=== PATIENT | male | born 1970 | race Caucasian/White ===

== ENCOUNTER 2021-05-10 00:24 | Inpatient (IN) ==
[2021-05-10 00:58] LABS: Basophils # 0.1 K/mcL (0.0-0.2); Basophils % 0.6 %; Eosinophils # 0.8 K/mcL (0.0-0.6); Eosinophils % 5.1 %; Hematocrit 44.8 % (37.5-50.1); Hemoglobin 15.4 g/dL (12.9-16.9); Lymphocytes # 2.7 K/mcL (0.6-4.6); Lymphocytes % 17.7 %; Mean Corpuscular HGB Conc 34.4 g/dL (31.6-35.5); Mean Corpuscular Hemoglobin 31.4 pg (28.0-33.3); Mean Corpuscular Volume 91.4 fL (83.0-100.0); Mean Platelet Volume 10.1 fL (9.4-12.4); Monocytes # 1.1 K/mcL (0.0-1.3); Monocytes % 7.3 %; Neutrophils # 10.5 K/mcL (1.6-8.9); Platelet Count 294 K/mcL (140-400); Red Cell Distribution Width 13.2 % (11.5-14.5); Segmented Neutrophils % 68.3 %; White Blood Count 15.4 K/mcL (4.3-11.1)
[2021-05-10 01:19] LABS: Alanine Aminotransferase 26 Units/L (7-52); Albumin 3.7 g/dL (3.5-5.7); Alkaline Phosphatase 53 Units/L (34-104); Amylase 43 Units/L (29-103); Aspartate Amino Transferase 22 Units/L (13-39); BUN/Creatinine Ratio 12 (6-26); Bilirubin,Direct 0.3 mg/dL (0.0-0.2); Bilirubin,Indirect 0.4 mg/dL (0.0-1.0); Bilirubin,Total 0.7 mg/dL (0.3-1.0); Blood Urea Nitrogen 10 mg/dL (6-20); Calcium 9.3 mg/dL (8.6-10.3); Carbon Dioxide 28 mEq/L (23-29); Chloride 100 mEq/L (98-107); Globulin 3.6 g/dL (2.4-3.5); Glucose 118 mg/dL (70-105); Lipase 35 Units/L (11-82); Osmolality,Calculated 286 (280-300); Potassium 3.4 mEq/L (3.5-5.1); Sodium 138 mEq/L (136-145); Total Protein 7.3 g/dL (6.4-8.9); eGFR For African Americans > 60 (> 60); eGFR For Non-African Americans > 60 (> 60)
[2021-05-10] MEDS ORDERED: MetroNIDAZOLE 500 MG/100 ML 500 MG/100 ML BAG IVPB ONE (02:36)
[2021-05-10] MEDS ORDERED: Ondansetron 4 MG/2 ML VIAL IVP ONE (02:36)
[2021-05-10] MEDS ORDERED: 0.9 % Sodium Chloride 1,000 ML IVC ONE (02:36)
[2021-05-10] MEDS ORDERED: cefTRIAXone 1,000 MG in 0.9 % Sodium Chloride Mini Bag 100 ML IVPB ONE (02:36)
[2021-05-10] MEDS ORDERED: *HR* FentaNYL (PF) 100 MCG/2 ML VIAL IVP ONE (02:41)
[2021-05-10] MEDS ORDERED: *HR* Promethazine 25 MG/ML VIAL IM PRN ×2 (03:37→08:15)
[2021-05-10] MEDS ORDERED: Naloxone 0.4 MG/ML INJ IVP PRN ×2 (03:37→08:15)
[2021-05-10] MEDS ORDERED: Saliva Stimulant 44.3ml BOTTLE PO PRN ×2 (03:43→08:15)
[2021-05-10] MEDS ORDERED: Acetaminophen 325 MG TABLET PO PRN ×2 (03:43→08:15)
[2021-05-10] MEDS ORDERED: D5% in Water 1,000 ML IVC PRN ×2 (03:44→08:15)
[2021-05-10] MEDS ORDERED: Potassium Chloride 40 MEQ, Lidocaine 1% 2 ML in 0.9 % Sodium Chloride 500 ML IVPB ONE (03:44)
[2021-05-10] MEDS ORDERED: Dextrose Gel 15 GM/37.5 ML TUBE PO PRN ×4 (03:44→08:15)
[2021-05-10] MEDS ORDERED: *HR* Dextrose 50 % in Water (Syg) 50 ML SYRINGE IVP PRN ×2 (03:44→08:15)
[2021-05-10] MEDS ORDERED: Morphine Sulfate 2 MG/ML SYRINGE IVP SCH (03:45)
[2021-05-10] MEDS ORDERED: Ipratropium/Albuterol Neb 3 ML IH SCH (04:00)
[2021-05-10 04:23] LABS: Influenza A PCR Negative (Negative); Influenza B PCR Negative (Negative); Resp. Syncytial Virus PCR Negative (Negative)
[2021-05-10 04:25] LABS: SARS-CoV-2 by PCR (In House) Negative (Negative)
[2021-05-10] MEDS ORDERED: *HR* HYDROmorphone PF 0.5 MG/0.5 ML SYRINGE IVP PRN ×2 (04:50→08:15)
[2021-05-10] MEDS ORDERED: 0.9 % Sodium Chloride 1,000 ML IVC SCH (05:00)
[2021-05-10] MEDS ORDERED: Acetaminophen IV 1,000 MG/100 ML BAG IVPB ONE ×4 (05:15→08:15)
[2021-05-10] MEDS ORDERED: *HR* Propofol 200 MG/20 ML VIAL IVP ONE (05:38)
[2021-05-10] MEDS ORDERED: *HR* Midazolam HCl 2 MG/2 ML VIAL ONE (05:38)
[2021-05-10] MEDS ORDERED: *HR* FentaNYL (PF) 100 MCG/2 ML VIAL ONE (05:38)
[2021-05-10 05:39] LABS: Basophils # 0.1 K/mcL (0.0-0.2); Basophils % 0.8 %; Eosinophils # 0.7 K/mcL (0.0-0.6); Eosinophils % 5.9 %; Hematocrit 41.8 % (37.5-50.1); Hemoglobin 14.2 g/dL (12.9-16.9); Immature Granulocytes % 0.9 % (0-4); Lymphocytes # 2.6 K/mcL (0.6-4.6); Lymphocytes % 20.4 %; Mean Corpuscular Hemoglobin 31.7 pg (28.0-33.3); Mean Corpuscular Volume 93.3 fL (83.0-100.0); Mean Platelet Volume 9.9 fL (9.4-12.4); Monocytes % 8.1 %; Platelet Count 236 K/mcL (140-400); Red Blood Count 4.48 M/mcL (4.19-5.50); Red Cell Distribution Width 13.4 % (11.5-14.5); Segmented Neutrophils % 63.9 %; White Blood Count 12.5 K/mcL (4.3-11.1)
[2021-05-10] MEDS ORDERED: Lidocaine HCL 4 ML Topical Solution (Laryng-O-Jet Kit Sterile Pak) TP ONE (05:40)
[2021-05-10] MEDS ORDERED: Ondansetron 4 MG/2 ML VIAL ONE (05:42)
[2021-05-10] MEDS ORDERED: Lidocaine -MPF 2% 5 ML VIAL ONE (05:42)
[2021-05-10] MEDS ORDERED: *HR* Succinylcholine 200 MG/10 ML VIAL IVP ONE (05:42)
[2021-05-10] MEDS ORDERED: *HR* Rocuronium Bromide 50 MG/5 ML VIAL ONE (05:42)
[2021-05-10] MEDS ORDERED: Sugammadex Sodium 200 MG/2 ML VIAL IV ONE (05:42)
[2021-05-10] MEDS ORDERED: *HR* Magnesium Sulfate 1 GM/2 ML VIAL ONE (05:43)
[2021-05-10 05:46] LABS: INR 1.1; Prothrombin Time 11.7 Seconds (9.4-12.1)
[2021-05-10 06:08] LABS: Alanine Aminotransferase 22 Units/L (7-52); Albumin 3.5 g/dL (3.5-5.7); Albumin/Globulin Ratio 1.1 (1.1-2.2); Alkaline Phosphatase 49 Units/L (34-104); Aspartate Amino Transferase 20 Units/L (13-39); BUN/Creatinine Ratio 13 (6-26); Bilirubin,Total 0.6 mg/dL (0.3-1.0); Blood Urea Nitrogen 10 mg/dL (6-20); Calcium 8.7 mg/dL (8.6-10.3); Carbon Dioxide 23 mEq/L (23-29); Chloride 106 mEq/L (98-107); Globulin 3.1 g/dL (2.4-3.5); Glucose 101 mg/dL (70-105); Magnesium 1.9 mg/dL (1.6-2.6); Osmolality,Calculated 283 (280-300); Phosphorous 3.7 mg/dL (2.7-4.5); Potassium 3.8 mEq/L (3.5-5.1); Sodium 137 mEq/L (136-145); Total Protein 6.6 g/dL (6.4-8.9); eGFR For African Americans > 60 (> 60); eGFR For Non-African Americans > 60 (> 60)
[2021-05-10] MEDS ORDERED: Nicotine 2 MG GUM BC PRN ×2 (06:38→08:15)
[2021-05-10] MEDS ORDERED: *HR* HYDROMORPHONE 2 MG/ML VIAL ONE (07:12)
[2021-05-10] MEDS: Budesonide/Formoterol 160/4.5 1 PUFF INH IH SCH ×2 (08:34→21:21)
[2021-05-10] MEDS: Ipratropium/Albuterol Neb 3 ML IH SCH ×3 (08:35→21:21)
[2021-05-10] MEDS: 0.9 % Sodium Chloride 1,000 ML IVC SCH ×2 (08:55→19:31)
[2021-05-10] MEDS ORDERED: Nicotine 14 MG PATCH.TD24 TD SCH (09:00)
[2021-05-10] MEDS ORDERED: Chlorhexidine Rinse 15 ML MOUTHWASH MM SCH (09:00)
[2021-05-10] MEDS: Chlorhexidine Rinse 15 ML MOUTHWASH MM SCH ×2 (09:04→21:42)
[2021-05-10] MEDS: Cefepime HCl 2,000 MG in 0.9 % Sodium Chloride Mini Bag 100 ML IVPB SCH ×2 (09:04→21:28)
[2021-05-10] MEDS: Nicotine 14 MG PATCH.TD24 TD SCH (09:04)
[2021-05-10] MEDS ORDERED: MetroNIDAZOLE 500 MG/100 ML 500 MG/100 ML BAG IVPB SCH (10:00)
[2021-05-10] MEDS ORDERED: Budesonide/Formoterol 160/4.5 1 PUFF INH IH SCH (10:00)
[2021-05-10] MEDS: MetroNIDAZOLE 500 MG/100 ML 500 MG/100 ML BAG IVPB SCH ×2 (11:47→17:22)
[2021-05-10] MEDS: Morphine Sulfate 2 MG/ML SYRINGE IVP PRN ×3 (15:43→23:46)
[2021-05-11 01:56] LABS: Basophils % 0.2 %; Hematocrit 43.9 % (37.5-50.1); Hemoglobin 14.8 g/dL (12.9-16.9); Immature Granulocytes % 0.8 % (0-4); Lymphocytes % 5.9 %; Mean Corpuscular HGB Conc 33.7 g/dL (31.6-35.5); Mean Corpuscular Hemoglobin 31.8 pg (28.0-33.3); Mean Corpuscular Volume 94.2 fL (83.0-100.0); Mean Platelet Volume 9.8 fL (9.4-12.4); Monocytes % 5.9 %; Neutrophils # 14.4 K/mcL (1.6-8.9); Platelet Count 289 K/mcL (140-400); Red Blood Count 4.66 M/mcL (4.19-5.50); Red Cell Distribution Width 13.4 % (11.5-14.5); Segmented Neutrophils % 87.2 %; White Blood Count 16.5 K/mcL (4.3-11.1)
[2021-05-11 02:18] LABS: Alanine Aminotransferase 18 Units/L (7-52); Albumin 3.4 g/dL (3.5-5.7); Alkaline Phosphatase 52 Units/L (34-104); Aspartate Amino Transferase 18 Units/L (13-39); BUN/Creatinine Ratio 12 (6-26); Bilirubin,Total 0.9 mg/dL (0.3-1.0); Blood Urea Nitrogen 9 mg/dL (6-20); Calcium 8.6 mg/dL (8.6-10.3); Carbon Dioxide 24 mEq/L (23-29); Chloride 105 mEq/L (98-107); Globulin 3.3 g/dL (2.4-3.5); Glucose 118 mg/dL (70-105); Osmolality,Calculated 290 (280-300); Potassium 4.5 mEq/L (3.5-5.1); Sodium 140 mEq/L (136-145); Total Protein 6.7 g/dL (6.4-8.9); eGFR For African Americans > 60 (> 60); eGFR For Non-African Americans > 60 (> 60)
[2021-05-11] MEDS: MetroNIDAZOLE 500 MG/100 ML 500 MG/100 ML BAG IVPB SCH ×3 (02:42→21:31)
[2021-05-11] MEDS: Morphine Sulfate 2 MG/ML SYRINGE IVP PRN ×5 (04:08→19:00)
[2021-05-11] MEDS: Ipratropium/Albuterol Neb 3 ML IH SCH ×4 (04:08→20:32)
[2021-05-11] MEDS: 0.9 % Sodium Chloride 1,000 ML IVC SCH ×2 (05:42→16:44)
[2021-05-11] MEDS: Cefepime HCl 2,000 MG in 0.9 % Sodium Chloride Mini Bag 100 ML IVPB SCH ×2 (08:25→23:44)
[2021-05-11] MEDS: Nicotine 14 MG PATCH.TD24 TD SCH (08:28)
[2021-05-11] MEDS: Chlorhexidine Rinse 15 ML MOUTHWASH MM SCH ×3 (08:28→22:13)
[2021-05-11] MEDS ORDERED: cefTRIAXone 1,000 MG in Water for inj. (sterile) 10 ML IVP SCH (09:00)
[2021-05-11] MEDS: Budesonide/Formoterol 160/4.5 1 PUFF INH IH SCH ×2 (09:52→20:32)
[2021-05-11] MEDS: Ketorolac 30 MG/ML VIAL IVP SCH ×2 (11:03→19:00)
[2021-05-11] MEDS: Acetaminophen IV 1,000 MG/100 ML BAG IVPB SCH ×2 (13:24→19:01)
[2021-05-11] MEDS: Gabapentin 300 MG CAPSULE PO SCH ×3 (14:54→22:13)
[2021-05-12] MEDS: Morphine Sulfate 2 MG/ML SYRINGE IVP PRN ×6 (00:25→19:24)
[2021-05-12] MEDS: Ketorolac 30 MG/ML VIAL IVP SCH ×4 (00:25→18:07)
[2021-05-12] MEDS: Acetaminophen IV 1,000 MG/100 ML BAG IVPB SCH ×4 (00:25→18:06)
[2021-05-12] MEDS: MetroNIDAZOLE 500 MG/100 ML 500 MG/100 ML BAG IVPB SCH ×3 (02:19→17:16)
[2021-05-12 02:35] LABS: Basophils # 0.1 K/mcL (0.0-0.2); Basophils % 0.5 %; Eosinophils # 0.4 K/mcL (0.0-0.6); Eosinophils % 3.4 %; Hematocrit 39.5 % (37.5-50.1); Immature Granulocytes % 0.6 % (0-4); Lymphocytes # 1.5 K/mcL (0.6-4.6); Mean Corpuscular HGB Conc 32.9 g/dL (31.6-35.5); Mean Corpuscular Volume 94.3 fL (83.0-100.0); Mean Platelet Volume 10.3 fL (9.4-12.4); Monocytes # 0.8 K/mcL (0.0-1.3); Monocytes % 7.6 %; Platelet Count 225 K/mcL (140-400); Red Blood Count 4.19 M/mcL (4.19-5.50); Red Cell Distribution Width 13.3 % (11.5-14.5); Segmented Neutrophils % 73.9 %; White Blood Count 10.8 K/mcL (4.3-11.1)
[2021-05-12 02:47] LABS: Alanine Aminotransferase 16 Units/L (7-52); Albumin 3.1 g/dL (3.5-5.7); Alkaline Phosphatase 39 Units/L (34-104); Aspartate Amino Transferase 16 Units/L (13-39); BUN/Creatinine Ratio 20 (6-26); Bilirubin,Total 0.8 mg/dL (0.3-1.0); Blood Urea Nitrogen 14 mg/dL (6-20); Calcium 8.6 mg/dL (8.6-10.3); Carbon Dioxide 27 mEq/L (23-29); Chloride 104 mEq/L (98-107); Globulin 3.2 g/dL (2.4-3.5); Glucose 96 mg/dL (70-105); Osmolality,Calculated 286 (280-300); Potassium 3.9 mEq/L (3.5-5.1); Sodium 138 mEq/L (136-145); Total Protein 6.3 g/dL (6.4-8.9); eGFR For African Americans > 60 (> 60); eGFR For Non-African Americans > 60 (> 60)
[2021-05-12] MEDS: Ipratropium/Albuterol Neb 3 ML IH SCH ×4 (04:15→21:06)
[2021-05-12] MEDS: *HR* Heparin 5,000 UNIT/ML VIAL SQ SCH ×2 (05:02→17:17)
[2021-05-12] MEDS: 0.9 % Sodium Chloride 1,000 ML IVC SCH ×3 (05:04→19:41)
[2021-05-12] MEDS ORDERED: *HR* Enoxaparin 40 MG/0.4 ML SYRINGE SQ SCH (06:00)
[2021-05-12] MEDS: Budesonide/Formoterol 160/4.5 1 PUFF INH IH SCH ×2 (07:51→21:06)
[2021-05-12] MEDS: Chlorhexidine Rinse 15 ML MOUTHWASH MM SCH ×2 (08:43→21:25)
[2021-05-12] MEDS: Cefepime HCl 2,000 MG in 0.9 % Sodium Chloride Mini Bag 100 ML IVPB SCH ×2 (08:43→21:26)
[2021-05-12] MEDS: Gabapentin 300 MG CAPSULE PO SCH ×3 (08:44→21:25)
[2021-05-12] MEDS: Nicotine 14 MG PATCH.TD24 TD SCH (08:44)
[2021-05-13] MEDS: Ketorolac 30 MG/ML VIAL IVP SCH ×2 (00:09→05:13)
[2021-05-13] MEDS: Acetaminophen IV 1,000 MG/100 ML BAG IVPB SCH ×2 (00:09→05:12)
[2021-05-13] MEDS: Morphine Sulfate 2 MG/ML SYRINGE IVP PRN ×2 (00:10→08:40)
[2021-05-13] MEDS: MetroNIDAZOLE 500 MG/100 ML 500 MG/100 ML BAG IVPB SCH (02:17)
[2021-05-13 02:25] LABS: Basophils # 0.1 K/mcL (0.0-0.2); Basophils % 0.6 %; Eosinophils # 0.8 K/mcL (0.0-0.6); Eosinophils % 8.4 %; Hematocrit 40.5 % (37.5-50.1); Hemoglobin 13.1 g/dL (12.9-16.9); Immature Granulocytes % 1.1 % (0-4); Lymphocytes # 1.4 K/mcL (0.6-4.6); Lymphocytes % 15.6 %; Mean Corpuscular HGB Conc 32.3 g/dL (31.6-35.5); Mean Corpuscular Hemoglobin 30.5 pg (28.0-33.3); Mean Corpuscular Volume 94.4 fL (83.0-100.0); Mean Platelet Volume 9.9 fL (9.4-12.4); Monocytes # 0.7 K/mcL (0.0-1.3); Monocytes % 7.6 %; Neutrophils # 5.9 K/mcL (1.6-8.9); Platelet Count 243 K/mcL (140-400); Red Blood Count 4.29 M/mcL (4.19-5.50); Red Cell Distribution Width 13.2 % (11.5-14.5); Segmented Neutrophils % 66.7 %; White Blood Count 8.9 K/mcL (4.3-11.1)
[2021-05-13 02:40] LABS: BUN/Creatinine Ratio 17 (6-26); Blood Urea Nitrogen 12 mg/dL (6-20); Calcium 8.5 mg/dL (8.6-10.3); Carbon Dioxide 28 mEq/L (23-29); Chloride 107 mEq/L (98-107); Glucose 120 mg/dL (70-105); Osmolality,Calculated 293 (280-300); Potassium 3.5 mEq/L (3.5-5.1); Sodium 141 mEq/L (136-145); eGFR For African Americans > 60 (> 60); eGFR For Non-African Americans > 60 (> 60)
[2021-05-13] MEDS: Ipratropium/Albuterol Neb 3 ML IH SCH ×4 (04:23→21:04)
[2021-05-13] MEDS: *HR* Heparin 5,000 UNIT/ML VIAL SQ SCH ×2 (05:13→18:04)
[2021-05-13] MEDS ORDERED: 0.9 % Sodium Chloride 1,000 ML IVC SCH (08:00)
[2021-05-13] MEDS: Chlorhexidine Rinse 15 ML MOUTHWASH MM SCH ×2 (08:45→20:46)
[2021-05-13] MEDS: Gabapentin 300 MG CAPSULE PO SCH (08:46)
[2021-05-13] MEDS: Nicotine 14 MG PATCH.TD24 TD SCH (08:47)
[2021-05-13] MEDS: metroNIDAZOLE 500 MG TABLET PO SCH ×3 (08:56→20:46)
[2021-05-13] MEDS: Budesonide/Formoterol 160/4.5 1 PUFF INH IH SCH ×2 (10:28→21:04)
[2021-05-13] MEDS ORDERED: *HR* LORazepam 1 MG TABLET PO ONE (10:30)
[2021-05-14 02:46] LABS: Basophils # 0.1 K/mcL (0.0-0.2); Basophils % 0.6 %; Eosinophils % 9.7 %; Hematocrit 40.4 % (37.5-50.1); Hemoglobin 13.9 g/dL (12.9-16.9); Immature Granulocytes % 1.7 % (0-4); Lymphocytes # 1.6 K/mcL (0.6-4.6); Lymphocytes % 14.7 %; Mean Corpuscular HGB Conc 34.4 g/dL (31.6-35.5); Mean Corpuscular Hemoglobin 31.4 pg (28.0-33.3); Mean Corpuscular Volume 91.4 fL (83.0-100.0); Mean Platelet Volume 9.6 fL (9.4-12.4); Monocytes # 0.7 K/mcL (0.0-1.3); Monocytes % 6.6 %; Neutrophils # 7.2 K/mcL (1.6-8.9); Platelet Count 276 K/mcL (140-400); Red Blood Count 4.42 M/mcL (4.19-5.50); Red Cell Distribution Width 12.8 % (11.5-14.5); Segmented Neutrophils % 66.7 %; White Blood Count 10.7 K/mcL (4.3-11.1)
[2021-05-14 03:03] LABS: BUN/Creatinine Ratio 13 (6-26); Blood Urea Nitrogen 9 mg/dL (6-20); Calcium 8.2 mg/dL (8.6-10.3); Carbon Dioxide 26 mEq/L (23-29); Chloride 104 mEq/L (98-107); Glucose 102 mg/dL (70-105); Osmolality,Calculated 281 (280-300); Potassium 3.9 mEq/L (3.5-5.1); Sodium 136 mEq/L (136-145); eGFR For African Americans > 60 (> 60); eGFR For Non-African Americans > 60 (> 60)
[2021-05-14] MEDS: Ipratropium/Albuterol Neb 3 ML IH SCH ×3 (03:59→16:05)
[2021-05-14] MEDS: *HR* Heparin 5,000 UNIT/ML VIAL SQ SCH (05:08)
[2021-05-14] MEDS: metroNIDAZOLE 500 MG TABLET PO SCH (09:58)
[2021-05-14] MEDS: Chlorhexidine Rinse 15 ML MOUTHWASH MM SCH (09:58)
[2021-05-14] MEDS: Nicotine 14 MG PATCH.TD24 TD SCH (09:58)
[2021-05-14] MEDS: Budesonide/Formoterol 160/4.5 1 PUFF INH IH SCH (10:21)
[2021-05-14 15:49] VITALS: BP 138/92; PULSE 66; TEMP 98; O2SAT 93
== END 2021-05-14 17:30 | disposition home or self-care (01) | DRG 231 ==
LOC: EMEROOARM 00:24 → 3ANU 00:24 → SUATTDRO 03:51 → 3ANU 04:10 → SUATTDRO 11:45
PROVIDERS: ADMIT Internal Medicine; ATTEND Student in an Organized Health Care Education/Training Program

== ENCOUNTER 2021-09-04 10:25 | Inpatient (IN) ==
[~2021-09-04 10:25] MED LIST: Famotidine 20 MG/2 ML VIAL IVP ONE; Scopolamine Patch 1.5 MG PATCH.TD72 TD ONE
[2021-09-04] MEDS ORDERED: Ringers Solution, Lactated 1,000 ML IVC SCH (11:00)
[2021-09-04] MEDS ORDERED: Acetaminophen IV 1,000 MG/100 ML BAG IVPB ONE (12:26)
[2021-09-04] MEDS ORDERED: Ipratropium Neb 0.5 MG NEBULIZER IH PRN (12:39)
[2021-09-04] MEDS ORDERED: *HR* FentaNYL (PF) 100 MCG/2 ML VIAL IVP PRN (12:39)
[2021-09-04] MEDS ORDERED: Albuterol 2.5 MG/3 ML NEBULIZER IH PRN (12:39)
[2021-09-04] MEDS ORDERED: Naloxone 0.4 MG/ML INJ IVP PRN ×2 (12:39→20:56)
[2021-09-04] MEDS ORDERED: Ondansetron 4 MG/2 ML VIAL IVP PRN (12:39)
[2021-09-04] MEDS ORDERED: cefOXitin 2,000 MG in 0.9 % Sodium Chloride 20 ML IVP ONE (13:29)
[2021-09-04] MEDS ORDERED: *HR* Propofol 200 MG/20 ML VIAL IVP ONE (13:58)
[2021-09-04] MEDS ORDERED: Ondansetron 4 MG/2 ML VIAL ONE (14:00)
[2021-09-04] MEDS ORDERED: *HR* Rocuronium Bromide 50 MG/5 ML VIAL ONE ×2 (14:00→15:49)
[2021-09-04] MEDS ORDERED: Lidocaine HCL 4 ML Topical Solution (Laryng-O-Jet Kit Sterile Pak) TP ONE (14:00)
[2021-09-04] MEDS ORDERED: Lidocaine -MPF 2% 5 ML VIAL ONE (14:00)
[2021-09-04] MEDS ORDERED: *HR* FentaNYL (PF) 100 MCG/2 ML VIAL ONE ×3 (14:20→16:22)
[2021-09-04] MEDS ORDERED: *HR* Midazolam HCl 2 MG/2 ML VIAL ONE (14:21)
[2021-09-04] MEDS ORDERED: CefOXitin 2,000 MG VIAL ONE (14:48)
[2021-09-04] MEDS ORDERED: *HR* Magnesium Sulfate 1 GM/2 ML VIAL ONE (15:32)
[2021-09-04] MEDS ORDERED: *HR* Labetalol 20 MG/4 ML SYRINGE IVP ONE (17:03)
[2021-09-04] MEDS ORDERED: *HR* HYDROMORPHONE 2 MG/ML VIAL ONE (17:15)
[2021-09-04] MEDS ORDERED: Ketamine HCL *QUVA* 50mg (1mL) SYRINGE ONE (17:39)
[2021-09-04] MEDS ORDERED: Ondansetron ODT 4 MG TAB.RAPDIS SL PRN (20:56)
[2021-09-04] MEDS ORDERED: Ipratropium/Albuterol Neb 3 ML IH PRN (20:56)
[2021-09-04] MEDS: *HR* OxyCODONE Immed Rel 5 MG TABLET PO PRN (22:09)
[2021-09-04] MEDS: 0.9 % Sodium Chloride 1,000 ML IVC SCH (22:10)
[2021-09-04] MEDS: Ibuprofen 600 MG TABLET PO SCH (22:11)
[2021-09-05] MEDS: *HR* HYDROmorphone (PF) 1 MG/ML SYRINGE IVP PRN ×4 (00:44→23:11)
[2021-09-05 06:33] LABS: Basophils # 0.1 K/mcL (0.0-0.2); Basophils % 0.3 %; Eosinophils % 0.1 %; Hematocrit 41.9 % (37.5-50.1); Hemoglobin 13.8 g/dL (12.9-16.9); Immature Granulocytes % 0.6 % (0-4); Lymphocytes # 1.6 K/mcL (0.6-4.6); Lymphocytes % 10.2 %; Mean Corpuscular HGB Conc 32.9 g/dL (31.6-35.5); Mean Corpuscular Hemoglobin 30.7 pg (28.0-33.3); Mean Corpuscular Volume 93.1 fL (83.0-100.0); Mean Platelet Volume 9.5 fL (9.4-12.4); Monocytes # 0.9 K/mcL (0.0-1.3); Monocytes % 5.5 %; Neutrophils # 13.2 K/mcL (1.6-8.9); Platelet Count 295 K/mcL (140-400); Red Cell Distribution Width 13.5 % (11.5-14.5); Segmented Neutrophils % 83.3 %; White Blood Count 15.9 K/mcL (4.3-11.1)
[2021-09-05] MEDS: *HR* OxyCODONE Immed Rel 5 MG TABLET PO PRN ×3 (06:40→21:03)
[2021-09-05 06:54] LABS: BUN/Creatinine Ratio 10 (6-26); Blood Urea Nitrogen 9 mg/dL (6-20); Calcium 8.1 mg/dL (8.6-10.3); Carbon Dioxide 27 mEq/L (23-29); Chloride 104 mEq/L (98-107); Glucose 102 mg/dL (70-105); Osmolality,Calculated 283 (280-300); Phosphorous 3.8 mg/dL (2.7-4.5); Potassium 4.5 mEq/L (3.5-5.1); Sodium 137 mEq/L (136-145); eGFR For African Americans > 60 (> 60); eGFR For Non-African Americans > 60 (> 60)
[2021-09-05] MEDS: Ibuprofen 600 MG TABLET PO SCH ×2 (08:10→21:03)
[2021-09-05] MEDS: 0.9 % Sodium Chloride 1,000 ML IVC SCH ×2 (08:29→18:36)
[2021-09-05] MEDS ORDERED: *HR* Dextrose 50 % in Water (Syg) 50 ML SYRINGE IVP ONE (13:45)
[2021-09-05] MEDS: D5% in 0.45% NACL w KCl 20 MEQ/1,000 ML MLS IVC SCH (21:02)
[2021-09-06] MEDS: *HR* OxyCODONE Immed Rel 5 MG TABLET PO PRN ×3 (03:03→21:38)
[2021-09-06] MEDS: *HR* HYDROmorphone (PF) 1 MG/ML SYRINGE IVP PRN ×3 (05:58→23:13)
[2021-09-06] MEDS: *HR* Enoxaparin 40 MG/0.4 ML SYRINGE SQ SCH (06:00)
[2021-09-06 06:24] LABS: Basophils % 0.3 %; Eosinophils # 0.1 K/mcL (0.0-0.6); Hematocrit 39.2 % (37.5-50.1); Hemoglobin 13.4 g/dL (12.9-16.9); Immature Granulocytes % 0.4 % (0-4); Lymphocytes # 2.3 K/mcL (0.6-4.6); Lymphocytes % 16.8 %; Mean Corpuscular HGB Conc 34.2 g/dL (31.6-35.5); Mean Corpuscular Hemoglobin 31.2 pg (28.0-33.3); Mean Corpuscular Volume 91.4 fL (83.0-100.0); Mean Platelet Volume 9.8 fL (9.4-12.4); Monocytes % 7.3 %; Neutrophils # 10.1 K/mcL (1.6-8.9); Platelet Count 258 K/mcL (140-400); Red Blood Count 4.29 M/mcL (4.19-5.50); Red Cell Distribution Width 13.6 % (11.5-14.5); Segmented Neutrophils % 74.2 %; White Blood Count 13.6 K/mcL (4.3-11.1)
[2021-09-06 07:00] LABS: BUN/Creatinine Ratio 7 (6-26); Blood Urea Nitrogen 6 mg/dL (6-20); Calcium 8.5 mg/dL (8.6-10.3); Carbon Dioxide 27 mEq/L (23-29); Chloride 102 mEq/L (98-107); Glucose 98 mg/dL (70-105); Osmolality,Calculated 282 (280-300); Potassium 3.6 mEq/L (3.5-5.1); Sodium 137 mEq/L (136-145); eGFR For African Americans > 60 (> 60); eGFR For Non-African Americans > 60 (> 60)
[2021-09-06] MEDS ORDERED: Acetaminophen IV 1,000 MG/100 ML BAG IVPB PRN (09:21)
[2021-09-06] MEDS: Ketorolac 30 MG/ML VIAL IVP PRN ×2 (10:43→19:51)
[2021-09-06] MEDS: D5% in 0.45% NACL w KCl 20 MEQ/1,000 ML MLS IVC SCH (10:44)
[2021-09-07] MEDS: D5% in 0.45% NACL w KCl 20 MEQ/1,000 ML MLS IVC SCH (02:14)
[2021-09-07] MEDS: Ketorolac 30 MG/ML VIAL IVP PRN (04:04)
[2021-09-07 04:10] VITALS: O2SAT 94
[2021-09-07 05:30] LABS: Basophils % 0.3 %; Eosinophils # 0.4 K/mcL (0.0-0.6); Eosinophils % 3.9 %; Hematocrit 37.5 % (37.5-50.1); Immature Granulocytes % 0.5 % (0-4); Lymphocytes # 1.9 K/mcL (0.6-4.6); Lymphocytes % 20.4 %; Mean Corpuscular HGB Conc 34.7 g/dL (31.6-35.5); Mean Corpuscular Hemoglobin 31.4 pg (28.0-33.3); Mean Corpuscular Volume 90.6 fL (83.0-100.0); Mean Platelet Volume 10.1 fL (9.4-12.4); Monocytes # 0.6 K/mcL (0.0-1.3); Monocytes % 6.8 %; Neutrophils # 6.5 K/mcL (1.6-8.9); Platelet Count 261 K/mcL (140-400); Red Blood Count 4.14 M/mcL (4.19-5.50); Segmented Neutrophils % 68.1 %; White Blood Count 9.5 K/mcL (4.3-11.1)
[2021-09-07 05:47] LABS: BUN/Creatinine Ratio 8 (6-26); Blood Urea Nitrogen 6 mg/dL (6-20); Calcium 8.5 mg/dL (8.6-10.3); Carbon Dioxide 24 mEq/L (23-29); Chloride 104 mEq/L (98-107); Glucose 100 mg/dL (70-105); Osmolality,Calculated 280 (280-300); Potassium 3.6 mEq/L (3.5-5.1); Sodium 136 mEq/L (136-145); eGFR For African Americans > 60 (> 60); eGFR For Non-African Americans > 60 (> 60)
[2021-09-07 07:33] VITALS: BP 107/71; PULSE 74; TEMP 97.6
[2021-09-07] MEDS ORDERED: D5% in 0.45% NACL w KCl 20 MEQ/1,000 ML MLS IVC SCH (08:15)
[2021-09-07] MEDS: *HR* Enoxaparin 40 MG/0.4 ML SYRINGE SQ SCH (08:56)
[2021-09-07] MEDS: *HR* OxyCODONE Immed Rel 5 MG TABLET PO PRN (08:56)
== END 2021-09-07 12:06 | disposition home or self-care (01) | DRG 223 ==
LOC: SAMDAY 10:25 → 3ANU 20:34
PROVIDERS: ADMIT Surgery; ATTEND Surgery

== ENCOUNTER 2021-09-10 16:57 | Observation (INO) ==
[2021-09-10 18:26] LABS: Bilirubin,Urine Negative (Negative); Blood,Urine Negative (Negative); Clarity,Urine Clear (Clear); Color,Urine Yellow (Yellow); Glucose,Urine (UA) Normal (Normal); Ketones,Urine Negative (Negative); Leukocyte Esterase,Urine Negative (Negative); Nitrite,Urine Negative (Negative); PH,Urine 7.5 pH Units (5.0-8.0); Protein,Urine Trace mg/dL (Neg-Trace); Specific Gravity,Urine 1.023 (1.010-1.025)
[2021-09-10 19:03] LABS: BUN/Creatinine Ratio 12 (6-26); Blood Urea Nitrogen 11 mg/dL (6-20); Calcium 9.6 mg/dL (8.6-10.3); Carbon Dioxide 21 mEq/L (23-29); Chloride 99 mEq/L (98-107); Glucose 77 mg/dL (70-105); Osmolality,Calculated 274 (280-300); Potassium 4.4 mEq/L (3.5-5.1); Sodium 133 mEq/L (136-145); eGFR For African Americans > 60 (> 60); eGFR For Non-African Americans > 60 (> 60)
[2021-09-10] MEDS ORDERED: 0.9 % Sodium Chloride 1,000 ML IVC ONE (21:02)
[2021-09-10] MEDS ORDERED: Isovue-370 500 ML BOTTLE IVP ONE (21:02)
[2021-09-10] MEDS ORDERED: Ondansetron 4 MG/2 ML VIAL IVP ONE (21:08)
[2021-09-10] MEDS ORDERED: Morphine Sulfate 2 MG/ML SYRINGE IVP ONE (21:08)
[2021-09-10 21:33] LABS: Basophils # 0.1 K/mcL (0.0-0.2); Basophils % 0.8 %; Eosinophils # 0.5 K/mcL (0.0-0.6); Eosinophils % 4.6 %; Hematocrit 40.8 % (37.5-50.1); Hemoglobin 13.6 g/dL (12.9-16.9); Immature Granulocytes % 1.3 % (0-4); Lymphocytes # 2.3 K/mcL (0.6-4.6); Lymphocytes % 21.9 %; Mean Corpuscular HGB Conc 33.3 g/dL (31.6-35.5); Mean Corpuscular Hemoglobin 30.7 pg (28.0-33.3); Mean Corpuscular Volume 92.1 fL (83.0-100.0); Mean Platelet Volume 9.5 fL (9.4-12.4); Monocytes # 0.9 K/mcL (0.0-1.3); Neutrophils # 6.8 K/mcL (1.6-8.9); Platelet Count 390 K/mcL (140-400); Red Blood Count 4.43 M/mcL (4.19-5.50); Red Cell Distribution Width 13.3 % (11.5-14.5); Segmented Neutrophils % 63.4 %; White Blood Count 10.7 K/mcL (4.3-11.1)
[2021-09-11] MEDS ORDERED: Melatonin 3 MG TABLET PO PRN (00:16)
[2021-09-11] MEDS ORDERED: Ondansetron 4 MG/2 ML VIAL IVP PRN (00:16)
[2021-09-11] MEDS ORDERED: Naloxone 0.4 MG/ML INJ IVP PRN (00:16)
[2021-09-11] MEDS ORDERED: D5% in Water 1,000 ML IVC PRN (00:19)
[2021-09-11] MEDS ORDERED: Dextrose 4 GM Chewable Tablets PO PRN ×2 (00:19)
[2021-09-11] MEDS ORDERED: *HR* Dextrose 50 % in Water (Syg) 50 ML SYRINGE IVP PRN (00:19)
[2021-09-11] MEDS ORDERED: Saliva Stimulant 44.3ml BOTTLE PO PRN (00:19)
[2021-09-11] MEDS ORDERED: Ketorolac 30 MG/ML VIAL IVP PRN (02:08)
[2021-09-11] MEDS: Ringers Solution, Lactated 1,000 ML IVC SCH ×2 (02:25→11:52)
[2021-09-11] MEDS: Acetaminophen IV 1,000 MG/100 ML BAG IVPB SCH ×3 (02:26→18:22)
[2021-09-11 02:58] LABS: Basophils # 0.1 K/mcL (0.0-0.2); Basophils % 0.9 %; Eosinophils # 0.5 K/mcL (0.0-0.6); Eosinophils % 5.2 %; Hematocrit 34.8 % (37.5-50.1); Immature Granulocytes % 1.6 % (0-4); Lymphocytes # 2.3 K/mcL (0.6-4.6); Lymphocytes % 24.5 %; Mean Corpuscular HGB Conc 34.2 g/dL (31.6-35.5); Mean Corpuscular Hemoglobin 31.7 pg (28.0-33.3); Mean Corpuscular Volume 92.8 fL (83.0-100.0); Mean Platelet Volume 9.8 fL (9.4-12.4); Neutrophils # 5.5 K/mcL (1.6-8.9); Platelet Count 318 K/mcL (140-400); Red Blood Count 3.75 M/mcL (4.19-5.50); Red Cell Distribution Width 13.5 % (11.5-14.5); Segmented Neutrophils % 57.8 %; White Blood Count 9.5 K/mcL (4.3-11.1)
[2021-09-11 02:59] LABS: Hemoglobin 11.9 g/dL (12.9-16.9)
[2021-09-11 03:08] LABS: INR 1.1; Prothrombin Time 12.5 Seconds (9.4-12.1)
[2021-09-11 03:20] LABS: Alanine Aminotransferase 16 Units/L (7-52); Albumin 3.2 g/dL (3.5-5.7); Alkaline Phosphatase 46 Units/L (34-104); Aspartate Amino Transferase 18 Units/L (13-39); BUN/Creatinine Ratio 11 (6-26); Bilirubin,Total 1.1 mg/dL (0.3-1.0); Blood Urea Nitrogen 9 mg/dL (6-20); Calcium 8.8 mg/dL (8.6-10.3); Carbon Dioxide 27 mEq/L (23-29); Chloride 103 mEq/L (98-107); Globulin 3.2 g/dL (2.4-3.5); Glucose 87 mg/dL (70-105); Magnesium 1.9 mg/dL (1.6-2.6); Osmolality,Calculated 280 (280-300); Phosphorous 3.6 mg/dL (2.7-4.5); Potassium 3.8 mEq/L (3.5-5.1); Sodium 136 mEq/L (136-145); Total Protein 6.4 g/dL (6.4-8.9); eGFR For African Americans > 60 (> 60); eGFR For Non-African Americans > 60 (> 60)
[2021-09-11] MEDS: Ipratropium/Albuterol Neb 3 ML IH SCH ×4 (04:35→20:15)
[2021-09-11] MEDS: Budesonide/Formoterol 160/4.5 1 PUFF INH IH SCH ×2 (07:44→20:15)
[2021-09-11 08:10] LABS: Hemoglobin 12.1 g/dL (12.9-16.9)
[2021-09-11] MEDS ORDERED: predniSONE 20 MG TABLET PO SCH (09:00)
[2021-09-11] MEDS ORDERED: Sennosides/Docusate Sodium TABLET PO SCH (09:00)
[2021-09-11] MEDS: Pantoprazole 40 MG VIAL IVP SCH (10:23)
[2021-09-11] MEDS: Chlorhexidine Rinse 15 ML MOUTHWASH MM SCH ×2 (10:23→20:32)
[2021-09-11] MEDS: polyethylene glycoL 3350 17 GM POWD.PACK PO SCH (10:24)
[2021-09-11] MEDS: Cholecalciferol (D-3) 1,000 UNIT (25MCG) TABLET PO SCH (10:24)
[2021-09-11] MEDS: Azithromycin 500 MG in 0.9 % Sodium Chloride 250 ML IVPB SCH (10:30)
[2021-09-11] MEDS: Nicotine 21 MG PATCH.TD24 TD SCH (10:40)
[2021-09-11] MEDS ORDERED: Ipratropium/Albuterol Neb 3 ML IH PRN (11:01)
[2021-09-11] MEDS ORDERED: Ondansetron ODT 4 MG TAB.RAPDIS SL PRN (11:01)
[2021-09-11] MEDS: Ibuprofen 600 MG TABLET PO SCH ×2 (14:39→20:32)
[2021-09-11 16:40] LABS: Hematocrit 39.7 % (37.5-50.1)
[2021-09-11] MEDS: Gabapentin 300 MG CAPSULE PO SCH (20:33)
[2021-09-11] MEDS ORDERED: Budesonide/Formoterol 80/4.5 1 PUFF INH IH SCH (22:00)
[2021-09-12] MEDS: Ipratropium/Albuterol Neb 3 ML IH SCH ×2 (04:39→10:47)
[2021-09-12 06:54] LABS: Hematocrit 34.1 % (37.5-50.1); Hemoglobin 11.8 g/dL (12.9-16.9)
[2021-09-12] MEDS: Azithromycin 500 MG in 0.9 % Sodium Chloride 250 ML IVPB SCH (09:43)
[2021-09-12] MEDS: Chlorhexidine Rinse 15 ML MOUTHWASH MM SCH (09:43)
[2021-09-12] MEDS: Pantoprazole 40 MG VIAL IVP SCH (09:43)
[2021-09-12] MEDS: polyethylene glycoL 3350 17 GM POWD.PACK PO SCH (09:43)
[2021-09-12] MEDS: Nicotine 21 MG PATCH.TD24 TD SCH (09:44)
[2021-09-12] MEDS: Gabapentin 300 MG CAPSULE PO SCH ×2 (09:44→20:28)
[2021-09-12] MEDS: Cholecalciferol (D-3) 1,000 UNIT (25MCG) TABLET PO SCH (09:44)
[2021-09-12] MEDS: Ibuprofen 600 MG TABLET PO SCH ×2 (09:44→20:27)
[2021-09-12] MEDS: Budesonide/Formoterol 160/4.5 1 PUFF INH IH SCH ×2 (10:48→20:20)
[2021-09-13 03:04] LABS: Hematocrit 36.1 % (37.5-50.1); Hemoglobin 11.7 g/dL (12.9-16.9)
[2021-09-13 03:14] LABS: BUN/Creatinine Ratio 10 (6-26); Blood Urea Nitrogen 8 mg/dL (6-20); Calcium 8.6 mg/dL (8.6-10.3); Carbon Dioxide 27 mEq/L (23-29); Chloride 107 mEq/L (98-107); Glucose 108 mg/dL (70-105); Magnesium 1.9 mg/dL (1.6-2.6); Osmolality,Calculated 289 (280-300); Potassium 3.9 mEq/L (3.5-5.1); Sodium 140 mEq/L (136-145); eGFR For African Americans > 60 (> 60); eGFR For Non-African Americans > 60 (> 60)
[2021-09-13] MEDS: Azithromycin 500 MG in 0.9 % Sodium Chloride 250 ML IVPB SCH (08:46)
[2021-09-13] MEDS: polyethylene glycoL 3350 17 GM POWD.PACK PO SCH (08:46)
[2021-09-13] MEDS: Cholecalciferol (D-3) 1,000 UNIT (25MCG) TABLET PO SCH (08:47)
[2021-09-13] MEDS: Gabapentin 300 MG CAPSULE PO SCH (08:47)
[2021-09-13] MEDS: Pantoprazole 40 MG VIAL IVP SCH (08:47)
[2021-09-13] MEDS: Nicotine 21 MG PATCH.TD24 TD SCH (08:48)
[2021-09-13] MEDS: Ibuprofen 600 MG TABLET PO SCH (08:48)
[2021-09-13 10:27] LABS: Bilirubin,Urine Negative (Negative); Blood,Urine Negative (Negative); Clarity,Urine Clear (Clear); Color,Urine Light-Yellow (Yellow); Glucose,Urine (UA) Normal (Normal); Ketones,Urine Negative (Negative); Leukocyte Esterase,Urine Negative (Negative); Nitrite,Urine Negative (Negative); PH,Urine 7.5 pH Units (5.0-8.0); Protein,Urine Negative (Neg-Trace); Specific Gravity,Urine 1.019 (1.010-1.025)
[2021-09-13] MEDS: Budesonide/Formoterol 160/4.5 1 PUFF INH IH SCH (10:52)
[2021-09-13 11:37] VITALS: BP 128/89; PULSE 82; TEMP 97.8; O2SAT 97
== END 2021-09-13 14:06 | disposition home or self-care (01) ==
LOC: EMEROOARM 16:57 → 3ANU 16:57 → SUATTDRO 09-11 00:01 → 3ANU 09-11 00:04
PROVIDERS: ADMIT Internal Medicine; ATTEND Internal Medicine